=== PATIENT | male | born 1965 ===

== ENCOUNTER 2021-01-10 12:42 | Outpatient (REF) | payer OTHER, SELFPAY | END 2021-01-10 12:43 | disposition home or self-care (01) | LOC: HO.SCI 12:42 | DX: Z13.89 Encounter for screening for other disorder (principal) ==

== ENCOUNTER 2021-01-23 08:29 | Outpatient (REF) | payer OTHER, SELFPAY ==
--- NOTE | ~2021-01-23 | US_ITS ---
EXAMINATION: US ABDOMEN COMPLETE CLINICAL INFORMATION: Gastroesophageal reflux disease. Postprandial plain pain. Evaluate for gallstones.. COMPARISON: None TECHNIQUE: Real-time imaging of the abdominal viscera. FINDINGS: PANCREAS: Not well visualized due to bowel gas ABDOMINAL AORTA: There is atherosclerotic disease. The proximal, mid, and distal segments are normal in caliber. INFERIOR VENA CAVA: Visualized portions are normal. LIVER: The liver is normal in size. The liver contour is normal. Liver echotexture is increased. No focal hepatic lesion. There is no intrahepatic biliary duct dilatation seen. GALLBLADDER: Normal. The gallbladder is physiologically distended without evidence of stones, sludge, polyps, wall thickening or pericholecystic fluid. COMMON BILE DUCT: Normal in caliber measuring 0.6 cm in diameter. RIGHT KIDNEY: There are 2 small cysts seen in the upper pole measuring 5 mm and 9 x 5 x 8 mm. No hydronephrosis. No renal calculi or mass. The kidney measures 11.9 cm in maximum dimension. LEFT KIDNEY: Normal. No hydronephrosis. No renal calculi or focal parenchymal lesions. The kidney measures 11.5 cm in maximum dimension. SPLEEN: Normal. The spleen measures 10 cm in maximum dimension. FREE FLUID: None. US/US abdomen complete IMPRESSION: Echogenic liver probably representing fatty infiltration. Normal-appearing gallbladder. No gallstone seen. Limited visualization of the pancreas. Small right renal cysts.
== END 2021-01-23 08:30 | disposition home or self-care (01) ==
LOC: HO.US 08:29
PROVIDERS: Visit Provider General Practice
DX: K21.9 Gastro-esophageal reflux disease without esophagitis (principal); K30 Functional dyspepsia
CPT/HCPCS: 76700